=== PATIENT | female | born 1960 | race Caucasian/White ===

== ENCOUNTER 2017-10-31 01:43 | Emergency (ER) | payer OTHER ==
[~2017-10-31] VITALS: Ht 162.6 cm; Wt 104.3 kg
[2017-11-01] MEDS ORDERED: Ventolin/Prove6.7 GM INH (17:33)
[2017-11-01] MEDS ORDERED: Flonase 0.05% N16 GM (17:33)
[2017-11-01] MEDS ORDERED: Betamethasone D60 ML TP (17:33)
[2017-11-01] MEDS ORDERED: CARV25 PO (17:33)
[2017-11-01] MEDS ORDERED: TRIDERM28.4 GM (17:33)
[2017-11-01] MEDS ORDERED: LOSA50 PO (17:33)
[2017-11-01] MEDS ORDERED: Hydrochloroth12.5 MG PO (17:33)
[2017-11-01] MEDS ORDERED: Omeprazole20 M1 (17:34)
[2017-11-01] MEDS ORDERED: AMLO5 PO (17:34)
[2017-11-01] MEDS ORDERED: Prozac20 MG (17:34)
[2017-11-01] MEDS ORDERED: LEVSOD50 (22:21)
[2017-11-01] MEDS ORDERED: Advair Hfa 230-12 GM (22:22)
[2017-11-01] MEDS ORDERED: BAYER CHEWABLE81 MG PO (22:22)
== END 2017-10-31 02:44 | disposition left against medical advice (07) ==
LOC: ER 01:43
DX: Z53.21 Procedure and treatment not carried out due to patient leaving prior to being seen by health care provider (principal)

== ENCOUNTER 2017-11-01 17:17 | Observation (INO) | payer OTHER ==
[~2017-11-01] VITALS: Ht 162.6 cm; Wt 104.5 kg
[2017-11-01] MEDS ORDERED: Flonase 0.05% N16 GM (17:33)
[2017-11-01] MEDS ORDERED: CARV25 PO (17:33)
[2017-11-01] MEDS ORDERED: Ventolin/Prove6.7 GM INH (17:33)
[2017-11-01] MEDS ORDERED: LOSA50 PO (17:33)
[2017-11-01] MEDS ORDERED: TRIDERM28.4 GM (17:33)
[2017-11-01] MEDS ORDERED: Hydrochloroth12.5 MG PO (17:33)
[2017-11-01] MEDS ORDERED: Betamethasone D60 ML TP (17:33)
[2017-11-01] MEDS ORDERED: AMLO5 PO (17:34)
[2017-11-01] MEDS ORDERED: Prozac20 MG (17:34)
[2017-11-01] MEDS ORDERED: Omeprazole20 M1 (17:34)
[2017-11-01] MEDS ORDERED: LEVSOD50 (22:21)
[2017-11-01] MEDS ORDERED: Advair Hfa 230-12 GM (22:22)
[2017-11-01] MEDS ORDERED: BAYER CHEWABLE81 MG PO (22:22)
[2017-11-02 05:01] LABS: Hematocrit 37.5 % (33.0-51.0); Hemoglobin 13.3 g/dL (11.5-16.0); Mean Corpuscular HGB 35.5 pg (26.0-34.0); Mean Corpuscular HGB Conc 35.5 g/dL (31.5-36.5); Mean Corpuscular Volume 100 fL (80-100); Mean Platelet Volume 11.6 fL (9.1-12.4); Platelet Count 176 K/mm3 (150-400); RDW Coefficient Variation 11.8 % (11.7-14.2); RDW Standard Deviation 42.9 fL (35.1-46.3); Red Blood Cell Count 3.75 M/mm3 (3.80-5.20); White Blood Cell Count 6.76 K/mm3 (4.00-11.30)
[2017-11-02 05:26] LABS: Alanine Aminotransfer (ALT/SGP 19 U/L (12-78); Albumin/Globulin Ratio 0.8 (0.8-1.8); Alk Phos 75 U/L (50-136); Anion Gap 9 mmol/L (6-16); Aspartate Aminotrans (AST/SGOT 13 U/L (12-37); Bilirubin, Total 0.3 mg/dL (0.1-1.0); Blood Urea Nitrogen 20 mg/dL (8-24); Bun/Creatinine Ratio 20.6 (12.0-20.0); CO2, Blood 23 mmol/L (21-32); Calcium, Blood 8.1 mg/dL (8.5-10.1); Chloride, Blood 112 mmol/L (98-108); Creatinine, Blood 0.97 mg/dL (0.40-1.00); Globulin, Blood 3.6 g/dL (2.2-4.0); Glomerular Filtration Rate >60 (60-); Glucose, Blood 94 mg/dL (70-99); Potassium, Blood 3.6 mmol/L (3.5-5.5); Sodium, Blood 144 mmol/L (136-145); Total Protein, Blood 6.6 g/dL (6.4-8.2); Troponin I 0.065 ng/mL (0.000-0.040)
[2017-11-02] MEDS ORDERED: ATOR40TA PO (13:00)
[2017-11-02] MEDS ORDERED: NITR.4SL SL (13:02)
== END 2017-11-02 14:30 | disposition home or self-care (01) ==
LOC: ER 17:17 → PCU 17:18
PROVIDERS: Internal Medicine
DX: R07.9 Chest pain, unspecified (principal); I10 Essential (primary) hypertension; K21.9 Gastro-esophageal reflux disease without esophagitis; N28.9 Disorder of kidney and ureter, unspecified; R79.89 Other specified abnormal findings of blood chemistry; Z79.899 Other long term (current) drug therapy; Z88.5 Allergy status to narcotic agent
CPT/HCPCS: 36415; 71046; 80053; 83880; 84484; 85027; 93005; 93010; 94640; 94760; 96372; 99285-25; G0378; J1650

== ENCOUNTER → 2017-11-01 | Outpatient (CLI) | payer OTHER ==
[~2017-11-01] MED LIST: AMLO5 PO; ATOR40TA PO; Advair Hfa 230-12 GM; BAYER CHEWABLE81 MG PO; Betamethasone D60 ML TP; CARV25 PO; Flonase 0.05% N16 GM; Hydrochloroth12.5 MG PO; LEVSOD50; LOSA50 PO; NITR.4SL SL; Omeprazole20 M1; Prozac20 MG; TRIDERM28.4 GM; Ventolin/Prove6.7 GM INH
[2017-11-01 15:54] LABS: BASOPHILS ABSOLUTE AUTO 0.03 K/mm3 (0.00-0.23); BASOPHILS PERCENT AUTO 1 % (0-2); EOSINOPHILS ABSOLUTE AUTO 0.08 K/mm3 (0.00-0.68); EOSINOPHILS PERCENT AUTO 1 % (0-6); Hematocrit 37.1 % (33.0-51.0); Hemoglobin 13.3 g/dL (11.5-16.0); IMMATURE GRAN ABSOLUTE AUTO 0.01 K/mm3 (0.00-0.10); IMMATURE GRAN PERCENT AUTO 0 % (0-1); LYMPHOCYTES ABSOLUTE AUTO 2.71 K/mm3 (0.84-5.20); LYMPHOCYTES PERCENT AUTO 41 % (21-46); MONOCYTES ABSOLUTE AUTO 0.49 K/mm3 (0.16-1.47); MONOCYTES PERCENT AUTO 7 % (4-13); Mean Corpuscular HGB 35.5 pg (26.0-34.0); Mean Corpuscular HGB Conc 35.8 g/dL (31.5-36.5); Mean Corpuscular Volume 99 fL (80-100); Mean Platelet Volume 11.5 fL (9.1-12.4); NEUTROPHILS ABSOLUTE AUTO 3.27 K/mm3 (1.96-9.15); NEUTROPHILS PERCENT AUTO 50 % (41-73); Platelet Count 200 K/mm3 (150-400); RDW Coefficient Variation 11.9 % (11.7-14.2); RDW Standard Deviation 43.7 fL (35.1-46.3); Red Blood Cell Count 3.75 M/mm3 (3.80-5.20); White Blood Cell Count 6.59 K/mm3 (4.00-11.30)
[2017-11-01 16:12] LABS: Bun/Creatinine Ratio 12.6 (12.0-20.0); Calcium, Blood 8.8 mg/dL (8.5-10.1); Creatinine, Blood 1.11 mg/dL (0.40-1.00); Potassium, Blood 3.9 mmol/L (3.5-5.5); Thyroid Stimulating Hormone 1.1 uIU/mL (0.360-4.800); Troponin I 0.054 ng/mL (0.000-0.040)
== END | disposition home or self-care (01) ==
LOC: LAB EV 15:47 → LAB SHORT 15:47
PROVIDERS: Family Medicine
DX: R07.89 Other chest pain (principal)
CPT/HCPCS: 80048; 84443; 84484; 85025

== ENCOUNTER 2019-07-03 09:05 | Emergency (ER) | payer OTHER ==
[~2019-07-03] VITALS: Ht 162.6 cm; Wt 108.9 kg
[2019-07-03] MEDS ORDERED: BENZ100A PO (11:24)
[2019-07-03] MEDS ORDERED: METPRE4DP PO (11:24)
== END 2019-07-03 11:31 | disposition home or self-care (01) ==
LOC: ER 09:05
DX: J98.8 Other specified respiratory disorders (principal); J98.01 Acute bronchospasm
CPT/HCPCS: 71045; 99283-25

== ENCOUNTER → 2020-03-12 | Outpatient (CLI) | payer OTHER ==
[~2020-03-12] MED LIST changes: +BENZ100A PO; +METPRE4DP PO
== END | disposition home or self-care (01) ==
LOC: LAB SHORT 10:40 → LAB EV 10:40
DX: R30.0 Dysuria (principal)
CPT/HCPCS: 87077; 87086; 87186

== ENCOUNTER 2020-07-29 23:10 | Emergency (ER) | payer OTHER ==
[~2020-07-29] VITALS: Ht 162.6 cm; Wt 104.3 kg
== END 2020-07-30 00:07 | disposition left against medical advice (07) ==
LOC: ER 23:10
DX: Z53.21 Procedure and treatment not carried out due to patient leaving prior to being seen by health care provider (principal)

== ENCOUNTER 2022-05-16 06:49 | Day surgery (SDC) | payer OTHER ==
[~2022-05-16] VITALS: Ht 165.1 cm; Wt 108.3 kg
== END 2022-05-16 08:43 | disposition home or self-care (01) ==
LOC: ORSCSDS 06:49
PROVIDERS: Ophthalmology
PROC: 08DJ3ZZ Extraction of Right Lens, Percutaneous Approach (ICD-10-PCS; principal; 2022-05-16 08:00)
DX: H25.11 Age-related nuclear cataract, right eye (principal); I10 Essential (primary) hypertension; E66.01 Morbid (severe) obesity due to excess calories; Z68.41 Body mass index [BMI] 40.0-44.9, adult; K64.8 Other hemorrhoids; Z87.891 Personal history of nicotine dependence; Z79.899 Other long term (current) drug therapy
CPT/HCPCS: J2001; J2250; J3010; J7040; V2632

== ENCOUNTER 2025-03-05 10:06 | Emergency (ER) | payer OTHER | END 2025-03-05 14:25 | disposition home or self-care (01) | LOC: ER 10:06 | DX: R41.0 Disorientation, unspecified (principal); I10 Essential (primary) hypertension; Z88.5 Allergy status to narcotic agent; Z79.899 Other long term (current) drug therapy; Z79.82 Long term (current) use of aspirin; E78.5 Hyperlipidemia, unspecified ==

== ENCOUNTER 2025-03-08 12:21 | Emergency (ER) | payer OTHER ==
[~2025-03-08] VITALS: Ht 162.6 cm; Wt 99.8 kg
[2025-03-08 13:07] LABS: BASOPHILS ABSOLUTE AUTO 0.01 K/mm3 (0.00-0.23); BASOPHILS PERCENT AUTO 0 % (0-2); EOSINOPHILS ABSOLUTE AUTO 0.01 K/mm3 (0.00-0.68); EOSINOPHILS PERCENT AUTO 0 % (0-6); Hematocrit 39.4 % (33.0-51.0); Hemoglobin 13.9 g/dL (11.5-16.0); IMMATURE GRAN ABSOLUTE AUTO 0.02 K/mm3 (0.00-0.10); IMMATURE GRAN PERCENT AUTO 0 % (0-1); LYMPHOCYTES ABSOLUTE AUTO 0.99 K/mm3 (0.84-5.20); LYMPHOCYTES PERCENT AUTO 16 % (21-46); MONOCYTES ABSOLUTE AUTO 0.46 K/mm3 (0.16-1.47); MONOCYTES PERCENT AUTO 8 % (4-13); Mean Corpuscular HGB Conc 35.3 g/dL (31.5-36.5); Mean Corpuscular Volume 95 fL (80-100); NEUTROPHILS ABSOLUTE AUTO 4.53 K/mm3 (1.96-9.15); NEUTROPHILS PERCENT AUTO 75 % (41-73); NRBC ABSOLUTE 0.00 K/mm3 (0.00-0.02); NRBC Auto 0.0 /100 WBC (0.0-0.2); Platelet Count 220 K/mm3 (150-400); RDW Coefficient Variation 12.1 % (11.7-14.2); RDW Standard Deviation 42.2 fL (35.1-46.3)
[2025-03-08 13:45] LABS: Alanine Aminotransfer (ALT/SGP 43 U/L (12-78); Albumin, Blood 3.2 g/dL (3.4-5.0); Albumin/Globulin Ratio 0.8 (0.8-1.8); Anion Gap 12 mmol/L (3-11); Aspartate Aminotrans (AST/SGOT 28 U/L (12-37); Bilirubin, Total 0.8 mg/dL (0.1-1.0); Blood Urea Nitrogen 15 mg/dL (8-24); CO2, Blood 22 mmol/L (21-32); Calcium, Blood 9.5 mg/dL (8.5-10.1); Chloride, Blood 110 mmol/L (98-108); Creatinine, Blood 1.06 mg/dL (0.40-1.00); Globulin, Blood 3.9 g/dL (2.2-4.0); Glucose, Blood 119 mg/dL (70-99); Potassium, Blood 3.5 mmol/L (3.5-5.5); Sodium, Blood 140 mmol/L (136-145); Thyroid Stimulating Hormone <0.005 uIU/mL (0.360-4.800); Total Protein, Blood 7.1 g/dL (6.4-8.2)
[2025-03-08] MEDS ORDERED: LORazepam 2 MG/ML 1ML Injection IV ONE (16:30)
[2025-03-08 16:51] LABS: Source, Urine Clean Catch
[2025-03-08 16:53] LABS: Color, Urine Yellow (P-Yellow); Glucose Qualitative, Urine Neg (Neg); Ketones, Urine 1+ (Neg); Leukocyte Esterase, Urine 1+ (Neg); Protein, Urine 2+ (Neg); Specific Gravity, Urine 1.015 (1.003-1.022); Urobilinogen, Urine 1+ (Normal)
[2025-03-08 16:59] LABS: Bilirubin, Urine 1+ (Neg)
[2025-03-08] MEDS ORDERED: CEPH500 PO (17:21)
[2025-03-08 17:30] VITALS: BP 183/87
== END 2025-03-08 18:05 | disposition home or self-care (01) ==
LOC: ER 12:21
PROVIDERS: Emergency Medicine; Physician Assistant
DX: R41.0 Disorientation, unspecified (principal); R07.89 Other chest pain
CPT/HCPCS: 71046; 71260; 80053; 81001; 83880; 84439; 84443; 84484; 85025; 85379; 87086; 93005; 93010; 96374-59; 99285-25; A9270; J2060; Q9967

== ENCOUNTER → 2025-03-10 | Outpatient (CLI) | payer OTHER ==
[~2025-03-10] MED LIST changes: +CEPH500 PO
== END ==
LOC: LAB SHORT 17:56 → LAB 17:56
DX: R30.0 Dysuria (principal)
CPT/HCPCS: 87086